=== PATIENT | female | born 1950 | race Hispanic/Latino ===

== ENCOUNTER 2019-10-28 18:07 | Emergency (ER) | payer MEDICARE, OTHER ==
[2019-10-28 18:35] LABS: BASOPHILS % (AUTO) 0.4 % (0.0-5.0); EOSINOPHILS % (AUTO) 1.5 % (0.0-8.0); HEMATOCRIT 37.8 % (36-48); LYMPHOCYTES % (AUTO) 42.1 % (21.0-51.0); MEAN CORPUSCULAR HEMOGLOBIN 31.2 pg (27.0-33.0); MEAN CORPUSCULAR HGB CONC 32.3 g/dL (32.0-36.0); MEAN CORPUSCULAR VOLUME 96.7 fL (79-99); MONOCYTES % (AUTO) 8.6 % (3.0-13.0); PLATELET COUNT (AUTO) 207 K/uL (130-400); RED BLOOD CELL COUNT(AUTO) 3.91 MIL/uL (4.00-5.50); WHITE BLOOD COUNT (AUTO) 4.5 K/uL (4.8-10.8)
[2019-10-28] MEDS ORDERED: ONDANSETRON HCL 4 MG/2 ML VIAL ONE (18:35)
[2019-10-28] MEDS ORDERED: MORPHINE SULFATE 5 MG/ML VIAL ONE (18:36)
[2019-10-28] MEDS ORDERED: SODIUM CHLORIDE 0.9% 1000ML 1,000 ML IV ONE (18:37)
[2019-10-28 18:46] LABS: CREATININE 1.1 mg/dL (0.5-1.5); POTASSIUM 3.6 mmol/L (3.5-5.1)
[2019-10-28 18:48] LABS: INR 0.95 (0.85-1.15); PARTIAL THROMBOPLASTIN TIME 24.7 SEC (26.3-35.5)
[2019-10-28 18:50] LABS: ALBUMIN 3.8 g/dL (3.5-5.0); BILIRUBIN,TOTAL 0.5 mg/dL (0.2-1.0)
[2019-10-28 18:53] LABS: APPEARANCE,URINE Clear (CLEAR); BILIRUBIN,URINE Negative (NEGATIVE); COLOR,URINE Yellow (YELLOW); GLUCOSE, URINE (UA) Negative (NEGATIVE); KETONES,URINE Negative (NEGATIVE); LEUKOCYTE ESTERASE ,URINE Trace (NEGATIVE); NITRATE,URINE Negative (NEGATIVE); OCCULT BLOOD,URINE Negative (NEGATIVE); PROTEIN,URINE Negative (NEGATIVE); UROBILINOGEN,URINE 0.2 mg/dL (0.2-1.0)
[2019-10-28 19:08] LABS: BACTERIA,URINE Rare /HPF (None Seen); RBC,URINE None Seen /HPF (0-1); SQUAMOUS EPITHELIAL CELL,UR None Seen /HPF (0-2); WBC,URINE 0-1 /HPF (0-1)
== END 2019-10-28 20:00 | disposition home or self-care (01) ==
LOC: EDH 18:07
DX: K59.00 Constipation, unspecified (principal); Z98.890 Other specified postprocedural states
CPT/HCPCS: 36415; 74176; 80053; 81001; 83690; 84484; 85025; 85610; 85730; 93005; 96374; 96375; 99285; J2270; J2405; J7030

== ENCOUNTER 2020-09-09 13:51 | Emergency (ER) | payer MEDICARE ==
[2020-09-09] MEDS ORDERED: LIDOCAINE HCL 2% 20ML ONE (13:58)
[2020-09-09] MEDS ORDERED: TETANUS/DIPHTHERIA TOXOID [ADULT] 0.5 ML VIAL IM ONE (14:14)
== END 2020-09-09 14:39 | disposition home or self-care (01) ==
LOC: EDH 13:51
DX: S61.215A Laceration without foreign body of left ring finger without damage to nail, initial encounter (principal); X58.XXXA Exposure to other specified factors, initial encounter; Y93.89 Activity, other specified; Y92.89 Other specified places as the place of occurrence of the external cause; Y99.8 Other external cause status
CPT/HCPCS: 12002; 73130; 99283; J3490; 90714

== ENCOUNTER 2021-04-02 12:44 | Observation (INO) | payer MEDICARE ==
[~2021-04-02] VITALS: Ht 167.6 cm; Wt 78.6 kg
[2021-04-02 12:54] VITALS: BP 127/77
[2021-04-02] MEDS ORDERED: ASPIRIN 325 MG TABLET PO SCH (13:00)
[2021-04-02 13:15] LABS: BASOPHILS % (AUTO) 0.5 % (0.0-5.0); EOSINOPHILS % (AUTO) 1.3 % (0.0-8.0); HEMATOCRIT 39.1 % (36-48); LYMPHOCYTES % (AUTO) 45.7 % (21.0-51.0); MEAN CORPUSCULAR HEMOGLOBIN 30.8 pg (27.0-33.0); MEAN CORPUSCULAR HGB CONC 31.7 g/dL (32.0-36.0); MEAN CORPUSCULAR VOLUME 97.3 fL (79-99); MONOCYTES % (AUTO) 10.3 % (3.0-13.0); NEUTROPHILS % (AUTO) 41.9 % (40.0-77.0); PLATELET COUNT (AUTO) 179 K/uL (130-400); RED BLOOD CELL COUNT(AUTO) 4.02 MIL/uL (4.00-5.50); RED CELL DISTRIBUTION WIDTH 13.8 % (11.0-15.5); WHITE BLOOD COUNT (AUTO) 3.9 K/uL (4.8-10.8)
[2021-04-02 13:28] LABS: CARBON DIOXIDE 29 mmol/L (21-32); CHLORIDE 104 mmol/L (101-111); CREATININE 0.8 mg/dL (0.5-1.5); GLOMERULAR FILTR. RATE CALC 75 mL/min (>60); GLUCOSE,RANDOM 96 mg/dL (70-105); POTASSIUM 4.2 mmol/L (3.5-5.1); SODIUM SERUM 141 mmol/L (136-145); UREA NITROGEN, BLOOD 9 mg/dL (7-18)
[2021-04-02 13:32] LABS: B-TYPE NATRIURETIC PEPTIDE 21 pg/mL (0-100)
[2021-04-02 13:41] LABS: ALANINE AMINOTRANSFERASE 27 U/L (12-78); ALBUMIN 4.1 g/dL (3.5-5.0); ASPARTATE AMINOTRANSFERASE 16 U/L (10-37); BILIRUBIN,TOTAL 0.3 mg/dL (0.2-1.0); CREATINE KINASE, TOTAL 84 U/L (21-232); MYOGLOBIN 34 ng/mL (10-92); TOTAL PROTEIN, SERUM 7.7 g/dL (6.0-8.3); TROPONIN I < 0.04 ng/mL (0.00-0.06)
[2021-04-02] MEDS: NITROGLYCERIN 1GM OINT 1 INCH/1GM TD SCH ×3 (13:47→23:20)
[2021-04-02 14:00] VITALS: BP 116/68
[2021-04-02] MEDS ORDERED: LACTULOSE 20 GM/30 ML UDCUP PO PRN (15:45)
[2021-04-02] MEDS ORDERED: ONDANSETRON 4MG INJ IV PRN (15:45)
[2021-04-02] MEDS ORDERED: ACETAMINOPHEN 325 MG TAB PO PRN ×2 (15:45)
[2021-04-02 16:11] LABS: THYROID STIMULATING HORMONE 1.89 uIU/mL (0.36-3.74)
[2021-04-02 18:26] VITALS: BP 115/80
[2021-04-02] MEDS: METOPROLOL TARTRATE 25 MG TAB PO SCH (21:06)
[2021-04-02] MEDS: ATORVASTATIN 20 MG TABLET PO SCH (21:06)
[2021-04-02 21:17] VITALS: BP 100/68
[2021-04-02 22:46] VITALS: BP 99/55
[2021-04-02 23:15] VITALS: BP 116/79
[2021-04-03 03:45] VITALS: BP 98/52
[2021-04-03 03:57] LABS: BASOPHILS % (AUTO) 0.4 % (0.0-5.0); EOSINOPHILS % (AUTO) 1.7 % (0.0-8.0); HEMATOCRIT 35.1 % (36-48); LYMPHOCYTES % (AUTO) 49.4 % (21.0-51.0); MEAN CORPUSCULAR HEMOGLOBIN 30.3 pg (27.0-33.0); MEAN CORPUSCULAR HGB CONC 31.3 g/dL (32.0-36.0); MEAN CORPUSCULAR VOLUME 96.7 fL (79-99); MONOCYTES % (AUTO) 10.6 % (3.0-13.0); NEUTROPHILS % (AUTO) 37.5 % (40.0-77.0); PLATELET COUNT (AUTO) 178 K/uL (130-400); RED BLOOD CELL COUNT(AUTO) 3.63 MIL/uL (4.00-5.50); RED CELL DISTRIBUTION WIDTH 14.1 % (11.0-15.5); WHITE BLOOD COUNT (AUTO) 4.6 K/uL (4.8-10.8)
[2021-04-03 04:08] LABS: CREATININE 1.1 mg/dL (0.5-1.5); POTASSIUM 3.8 mmol/L (3.5-5.1)
[2021-04-03 07:30] VITALS: BP 103/63
[2021-04-03] MEDS: NITROGLYCERIN 1GM OINT 1 INCH/1GM TD SCH ×4 (07:45→23:45)
[2021-04-03] MEDS: PANTOPRAZOLE 40 MG TAB DR PO SCH (10:25)
[2021-04-03] MEDS: METOPROLOL TARTRATE 25 MG TAB PO SCH ×3 (10:25→21:31)
[2021-04-03] MEDS: ASPIRIN 325 MG TABLET PO SCH (10:26)
[2021-04-03] MEDS: ENOXAPARIN SODIUM 30 MG/0.3 ML SQ SCH (10:26)
[2021-04-03 11:00] VITALS: BP 109/60
[2021-04-03 16:00] VITALS: BP 113/71
[2021-04-03] MEDS ORDERED: ATOR10 PO (18:24)
[2021-04-03] MEDS ORDERED: ASPI-1005 PO (18:24)
[2021-04-03] MEDS ORDERED: METO25 PO (18:24)
[2021-04-03] MEDS ORDERED: PANT20TA18 PO (18:32)
[2021-04-03 19:09] VITALS: BP 101/58
[2021-04-03] MEDS: ATORVASTATIN 20 MG TABLET PO SCH (21:31)
[2021-04-03 23:34] VITALS: BP 111/67
[2021-04-04 03:15] VITALS: BP 98/66
[2021-04-04] MEDS: NITROGLYCERIN 1GM OINT 1 INCH/1GM TD SCH ×2 (07:45→12:42)
[2021-04-04 08:18] VITALS: BP 101/59
[2021-04-04] MEDS: PANTOPRAZOLE 40 MG TAB DR PO SCH (09:28)
[2021-04-04] MEDS: ASPIRIN 325 MG TABLET PO SCH (09:28)
[2021-04-04] MEDS: ENOXAPARIN SODIUM 30 MG/0.3 ML SQ SCH (09:29)
[2021-04-04] MEDS: METOPROLOL TARTRATE 25 MG TAB PO SCH (09:29)
[2021-04-04] MEDS ORDERED: METOPROLOL TARTRATE 25 MG TAB PO SCH (09:54)
[2021-04-04 11:53] VITALS: BP 119/76
== END 2021-04-04 14:00 | disposition home or self-care (01) ==
LOC: EDH 12:44 → EDHIP 15:32 → 4CH 23:20
PROVIDERS: ADMIT Internal Medicine; ATTEND Internal Medicine
DX: R07.89 Other chest pain (principal); E11.9 Type 2 diabetes mellitus without complications; K21.9 Gastro-esophageal reflux disease without esophagitis; F41.8 Other specified anxiety disorders; R94.31 Abnormal electrocardiogram [ECG] [EKG]; E78.5 Hyperlipidemia, unspecified; Z79.899 Other long term (current) drug therapy
CPT/HCPCS: 36415 ×2; 70450; 71045; 80048; 80053; 80061; 82550; 83036; 83874; 83880; 84443; 84484 ×3; 85025 ×2; 85378; 85651; 86140; 87088; 93005 ×3; 93306; 93356; 96372 ×2; 99285; G0378 ×45; J1650 ×2

== ENCOUNTER → 2022-03-07 | Outpatient (CLI) | payer MEDICARE ==
[~2022-03-07] MED LIST: ASPI-1005 PO; ATOR10 PO; METO25 PO; PANT20TA18 PO; REGADENOSON 0.4 MG/5 ML PF SYG IVP SCH
== END | disposition home or self-care (01) ==
LOC: OIH 08:55
PROVIDERS: ATTEND Internal Medicine Cardiovascular Disease
DX: R07.9 Chest pain, unspecified (principal)
CPT/HCPCS: 78452; 93017; 96374; A9500 ×2; J2785

== ENCOUNTER → 2024-09-23 | Outpatient (CLI) | payer MEDICARE ==
[~2024-09-23] MED LIST changes: -REGADENOSON 0.4 MG/5 ML PF SYG IVP SCH
--- NOTE | 2024-10-26 00:56 | HMCSR ---
APPROVED REPORT Bilateral Lower Extremity Venous Study for DVT., Venous Competence.Study performed with patient in up right position or in reverse Trendelenburg. Vein Imaging CFV (R): Normal flow, augmentation and compression. No evidence of DVT. SFJ (R): Normal flow, augmentation and compression. No evidence of DVT.Normal flow, augmentation and compression. No evidence of DVT. FEM (R): Normal flow, augmentation and compression. No evidence of DVT, 272 ms of DVR. POP (R): Normal flow, augmentation and compression. No evidence of DVT, 333 ms of DVR. DFV (R): Normal flow, augmentation and compression. No evidence of DVT.Normal flow, augmentation and compression. No evidence of DVT. PTV (R): Normal flow, augmentation and compression. No evidence of DVT. Peroneals (R): Normal flow, augmentation and compression. No evidence of DVT. GAS (R): Normal flow, augmentation and compression. No evidence of DVT. CFV (L): Normal flow, augmen tation and compression. No evidence of DVT. SFJ (L): Normal flow, augmentation and compression. No evidence of DVT. FEM (L): Normal flow, augmentation and compression. No evidence of DVT, 439 ms of DVR. POP (L): Normal flow, augmentation and compression. No evidence of DVT. DFV (L): Normal flow, augmentation and compression. No evidence of DVT. PTV (L): Normal flow, augmentation and compression. No evidence of DVT. Peroneals (L): Normal flow, augmentation and compression. No evidence of DVT. GAS (L): Normal flow, augmentation and compression. No evidence of DVT. Technologist Impression The deep veins of the bilateral lower extremities appear patent and compressible without evidence of thrombus. Deep venous reflux noted. There is evidence of significant superficial venous insufficiency in the right smaller saphenous vein and the left greater saphenous vein. RGSV Junction 3.7 mm 0 ms Mid thigh 3.0 mm 183 ms Knee 3.2 mm 0 ms Mid- calf 2.1 mm 189 ms RSSV Prox 2.6 mm 1050 ms Mid 1.6 mm 0 ms LGSV Junction 4.7 mm 178 ms Mid thigh 2.8 mm 0 ms Knee 2.8 mm 194 ms Mid-calf 1.8 mm 850 ms LSSV Prox 3.1 mm 0 ms Mid 1.8 mm 0 ms Conclusion The deep veins of the bilateral lower extremities appear patent and compressible without evidence of thrombus. There is no significant deep venous reflux seen in either lower extremity. There is significant superficial venous reflux seen in the RSSV (Prox 2.6 mm 1050 ms) and LGSV (Mid-c silvina 1.8 mm 850 ms). The above-mentioned findings are diagnostic for chronic venous insufficiency affecting the bilateral lower extremities. Conclusion The deep veins of the bilateral lower extremities appear patent and compressible without evidence of thrombus. There is no significant deep venous reflux seen in either lower extremity. There is significant superficial venous reflux seen in the RSSV (Prox 2.6 mm 1050 ms) and LGSV (Mid-c [facility] 1.8 mm 850 ms). The above-mentioned findings are diagnostic for chronic venous insufficiency affecting the bilateral lower extremities.
== END | disposition home or self-care (01) ==
LOC: SHCH 13:30
PROVIDERS: ATTEND Internal Medicine Cardiovascular Disease
DX: R60.9 Edema, unspecified (principal)
CPT/HCPCS: 93970